=== PATIENT | male | born 1955 | race Caucasian/White ===

== ENCOUNTER 2016-08-10 06:41 | Day surgery (SDC) | payer BC ==
[2016-08-10] MEDS ORDERED: Lactated Ringers 1,000 ML IV SCH (07:00)
[2016-08-10] MEDS ORDERED: Lidocaine 1%/Sod Bicarbonate in NS 8.4% 1 ML Syringe IV PRN (07:00)
[2016-08-10] MEDS ORDERED: Sodium Chloride 0.9% 10 ML Syringe FLUSH PRN (07:00)
--- NOTE | 2016-08-10 07:06 | PCM.PREANE ---
Preanesthetic Assessment - Procedure Proposed Procedure: Right middle finger A1 shanelle release - Anesthesia/Transfusion/Family Hx Anesthesia History: Prior Anesthesia Without Reaction Family History of Anesthesia Reaction: No Transfusion History: No Prior Transfusion(s) - Review of Systems General: No Symptoms Pulmonary: Other (bronchial asthmatic attacks only when he has had bronchitis ) Cardiovascular: Other (HTN controlled with meds, Hyperlipidemia ) Gastrointestinal: No symptoms Neurological: No Symptoms Other: Reports: None - Physical Assessment NPO Status Date: 08/09/16 NPO Status Time: 22:00 Pulse: 73 O2 Sat by Pulse Oximetry: 95 Respiratory Rate: 18 Blood Pressure: 148/84 Temperature: 37.1 C Height: 1.8 m Weight: 96.252 kg ASA Class: 2 Mental Status: Alert & Oriented x3 Airway Class: Mallampati = 2 Dentition: Reports: Normal Dentition Thyro-Mental Finger Breadths: 3 ROM/Head Extension: Full Lungs: Clear to auscultation, Normal respiratory effort Cardiovascular: Regular Rate, Regular Rhythm - Allergies Allergies/Adverse Reactions: Allergies Allergy/AdvReac Type Severity Reaction Status Date / Time bee pollen Allergy Anaphylactic Verified 08/09/16 16:25 Shock - Blood Blood Available: No Product(s) Available: None - Anesthesia Plan Pre-Op Medication Ordered: None - Acknowledgements Anesthesia Type Planned: MAC Pt an Appropriate Candidate for the Planned Anesthesia: Yes Alternatives and Risks of Anesthesia Discussed w Pt/Guardian: Yes Pt/Guardian Understands and Agrees with Anesthesia Plan: Yes PreAnesthesia Questionnaire HEENT History: Reports: Allergic Rhinitis, Hard of Hearing, Impaired Vision Other HEENT History: wears glasses. wears hearing aids Cardiovascular History: Reports: High Cholesterol, Hypertension Respiratory History: Reports: Asthma Gastrointestinal History: Reports: None, Other (See Below) Other Gastrointestinal History: abdominal pain Genitourinary History: Reports: Other (See Below) Other Genitourinary History: enlarged prostate, urinary frequendy DRY MIXER History: Reports: None Musculoskeletal History: Reports: None, Arthritis, Osteoarthritis Neurological History: Reports: Other (See Below) Other Neuro History: cold to extremities Psychiatric History: Reports: ADD, ADHD, Anxiety, Bipolar, Other (See Below) Other Psychiatric History: ETOH abuse Endocrine/Metabolic History: Reports: None Hematologic History: Reports: Idiopathic Thrombocytopenia Immunologic History: Reports: None Oncologic (Cancer) History: Reports: None Dermatologic History: Reports: Other (See Below) Other Dermatologic History: herpes zoster - Infectious Disease History Infectious Disease History: Reports: Chicken Pox - Past Surgical History Head Surgeries/Procedures: Reports: None HEENT Surgical History: Reports: Adenoidectomy, Naso-Sinus Surgery, Tonsillectomy, Other (See Below) Other HEENT Surgeries/Procedures: Deviated septum Cardiovascular Surgical History: Reports: None GI Surgical History: Reports: Appendectomy, Cholecystectomy, Colonoscopy Musculoskeletal Surgical History: Reports: Other (See Below) Other Musculoskeletal Surgeries/Procedures:: MCL surgery, bilateral thumb surgery, left leg tendon legnthening, ORIF tibial plateau, shoulder surgery - SUBSTANCE USE Smoking Status *Q: Never Smoker Tobacco Use Within Last Twelve Months: No Second Hand Smoke Exposure: No Days Per Week of Alcohol Use: 0 Number of Drinks Per Day: 0 Total Drinks Per Week: 0 Recreational Drug Use History: No - HOME MEDS Home Medications: Home Meds Aspirin [Adult Low Dose Aspirin EC] 81 mg PO DAILY 03/21/15 [History] Cholecalciferol (Vitamin D3) [Vitamin D3] 1 tab PO DAILY 03/21/15 [History] Lisinopril 20 mg PO DAILY 03/21/15 [History] Multivitamin [Super Multivitamin] 1 each PO DAILY 03/21/15 [History] Simvastatin [Zocor] 40 mg PO BEDTIME 03/21/15 [History] buPROPion HCl [buPROPion HCl ER] 200 mg PO DAILY 08/09/16 [History] - CURRENT (IN HOUSE) MEDS Current Meds: Current Medications Lactated Ringer's (Ringers, Lactated) 1,000 mls @ 125 mls/hr IV ASDIRECTED AMANDA Stop: 08/10/16 18:00 Lidocaine/Sodium Bicarbonate (Buffered Lidocaine 1% In Ns 8.4%) 0.25 ml IV ONETIME PRN PRN Reason: Prior to IV Start Stop: 08/10/16 18:00 Sodium Chloride (Saline Flush) 10 ml FLUSH ASDIRECTED PRN PRN Reason: Keep Vein Open Stop: 08/10/16 18:00
[2016-08-10] MEDS ORDERED: Lidocaine 1% 30 ML SDV ONE (07:13)
[2016-08-10] MEDS ORDERED: Propofol 200 MG/20 ML SDV ONE (07:20)
[2016-08-10] MEDS ORDERED: fentaNYL 100 MCG/2 ML SDV ONE (07:20)
[2016-08-10] MEDS ORDERED: Midazolam 1 MG/ML 2 ML SDV ONE (07:21)
[2016-08-10] MEDS ORDERED: Lidocaine 1% 4 ML ONE (07:22)
[2016-08-10] MEDS: Bupivacaine 0.25% 30 ML SDV ONE ×2 (07:40→07:50)
--- NOTE | 2016-08-10 08:08 | PCM48HPAN ---
Post Anesthesia Note - EVALUATION WITHIN 48HRS OF ANESTHETIC Vital Signs in Normal Range: Yes Patient Participated in Evaluation: Yes Respiratory Function Stable: Yes Airway Patent: Yes Cardiovascular Function Stable: Yes Hydration Status Stable: Yes Pain Control Satisfactory: Yes Nausea and Vomiting Control Satisfactory: Yes Mental Status Recovered: Yes
[2016-08-10 08:58] VITALS: BP 134/84
--- NOTE | 2016-08-13 22:10 | PCM.OPNOTE ---
- General Post-Op/Procedure Note Date of Surgery/Procedure: 08/10/16 Operative Procedure(s): right middle finger a1 shanelle release Pre Op Diagnosis: right middle finger stenosing tenosynovitis Post-Op Diagnosis: Same Anesthesia Technique: Local, MAC Primary Surgeon: Kirit Walton Anesthesia Provider: Yo Mckinney Instructional Aide: Katie Moseley EBL in mLs: 5 Complications: None Condition: Good
--- NOTE | 2016-08-20 09:29 | OR ---
DATE OF OPERATION: 08/10/2016 SURGEON: Kirit Walton MD OPERATION PERFORMED: Right middle finger A1 shanelle release. PREOPERATIVE DIAGNOSIS: Right middle finger stenosing tenosynovitis. POSTOPERATIVE DIAGNOSIS: Right middle finger stenosing tenosynovitis. ANESTHESIA: Local MAC. ANESTHESIA PROVIDER: Yo Mckinney. PROFILER OPERATOR: Katie Moseley PA-C ESTIMATED BLOOD LOSS: 5 mL. COMPLICATIONS: None. CONDITION: Stable. DESCRIPTION OF PROCEDURE: The patient was identified in the preop holding area. Proper site was marked and identified by the surgeon. The patient was taken back to the operating theater, where after adequate anesthesia, the patient's right upper extremity was sterilely prepped and draped in the usual sterile fashion. OR timeout was performed. The patient did not receive his antibiotics. It is not indicated for soft tissue hand procedure at this time. Esmarch was used for a tourniquet on the forearm. 25% Marcaine without epinephrine 1% lidocaine without epinephrine was then used to anesthetize the incisional site over the A1 shanelle of the right long finger. At this time, a transverse incision was made over the A1 shanelle. Blunt dissection was taken down to the flexor tendon sheath. Ragnell retractors were placed both radially and ulnarly to protect the neurovascular bundles. Dawson blade was then used for resection of the A1 shanelle. The tenotomy scissors were then used for release more proximal and then it was made sure to be released all the way distally. At this time, the tendon was brought out of the wound bed. It was found to have no significant adhesions AND adequate saline was irrigated through the wound and 4-0 nylon simple suture was used for closure of the skin. The patient tolerated the procedure well and was sent to the PACU in stable condition. MMODAL /[id number]
== END 2016-08-10 09:05 | disposition home or self-care (01) ==
LOC: JD.SDS 06:41
PROVIDERS: ATTEND Orthopaedic Surgery
PROC: 0LN70ZZ Release Right Hand Tendon, Open Approach (ICD-10-PCS; principal; 2016-08-10)
DX: M65.331 Trigger finger, right middle finger (principal); I10 Essential (primary) hypertension; E78.5 Hyperlipidemia, unspecified; D69.6 Thrombocytopenia, unspecified
CPT/HCPCS: 26055; J2250; J3010; J7120; 01810; J2704; J3490